=== PATIENT | male | born 1970 | race Caucasian/White ===

== ENCOUNTER 2020-10-09 12:18 | Outpatient (REF) | payer OTHER, SELFPAY ==
[2020-10-09 13:56] LABS: MANUAL DIFF FLAG NO
[2020-10-09 14:04] LABS: Basophils Percent Auto 0.4 % (0-2); Eosinophils Absolute Auto 0.2 X10*3/uL (0.0-0.4); Eosinophils Percent Auto 2.5 % (0-4); Hematocrit 42.3 % (42-52); Hemoglobin 13.8 g/dl (14.0-18.0); Imm Gran Abs Auto 0.01 X10*3/uL (0.00-0.03); Imm Gran Pct Auto 0.1 % (0.0-0.4); Lymphocytes Percent Auto 20.9 % (20-40); Mean Corpuscular HGB Conc 32.6 g/dl (31.0-36.0); Mean Corpuscular Hemoglobin 30.3 pg (27.0-33.0); Mean Corpuscular Volume 92.8 fL (80-98); Mean Platelet Volume 9.2 fL (9.4-12.4); Monocytes Absolute Auto 0.8 X10*3/uL (0.1-1.2); Monocytes Percent Auto 8.6 % (2-11); Neutrophils Absolute Auto 6.3 X10*3/uL (2.0-8.3); Neutrophils Percent Auto 67.5 % (45-73); Platelet Count 280 X10*3/uL (160-400); Red Blood Count 4.56 X10*6/uL (4.60-5.80); Red Cell Distribution Width 13.2 % (11.0-16.0); White Blood Count 9.3 X10*3/uL (4.8-10.8)
[2020-10-09 14:24] LABS: Alanine Aminotransferase 21 U/L (0-40); Albumin Level 4.2 g/dL (3.5-5.0); Alkaline Phosphatase 72 U/L (39-117); Anion Gap 14 (12-20); Aspartate Amino Transferase 22 U/L (5-37); Bilirubin Total 0.2 mg/dL (0.0-1.0); Blood Urea Nitrogen 16 mg/dL (9-16); Carbon Dioxide 23 mmol/L (22-29); Chloride 103 mmol/L (96-108); Estimated Glomerular Filt Rate > 60; Glucose Random 74 mg/dL (60-115); Sodium 136 mmol/L (135-145)
[2020-10-09 14:54] LABS: Vitamin B12 918 pg/mL (200-900)
== END 2020-10-09 12:19 | disposition home or self-care (01) ==
LOC: HO.HMGCLDS 12:18
PROVIDERS: PCP Nurse Practitioner Family; Visit Provider Nurse Practitioner Family
DX: D64.9 Anemia, unspecified (principal)
CPT/HCPCS: 36415; 80053; 82607; 85025

== ENCOUNTER 2021-07-24 12:45 | Outpatient (REF) | payer OTHER, SELFPAY ==
--- NOTE | ~2021-07-24 | XR_ITS ---
EXAMINATION: XR LUMBOSACRAL SPINE CLINICAL INFORMATION: Low back pain COMPARISON: None TECHNIQUE: Three views of the lumbosacral spine. FINDINGS: Bone alignment is normal. There is a slight loss of height of the superior endplate of the L1 vertebral body questionable for mild old compression fracture. There is mild degenerative spondylosis at L4-L5. Disc spaces are normal. There is increased sclerosis in the left femoral head suggestive of AVN. XR/XR lumbar spine 2-3V IMPRESSION: Question old mild L1 vertebral body compression fracture. Left femoral head AVN.
[2021-07-24 14:00] LABS: MANUAL DIFF FLAG NO
[2021-07-24 14:05] LABS: Basophils Percent Auto 0.6 % (0-2); Eosinophils Absolute Auto 0.1 X10*3/uL (0.0-0.4); Eosinophils Percent Auto 1.7 % (0-4); Hematocrit 43.3 % (42-52); Hemoglobin 14.2 g/dl (14.0-18.0); Imm Gran Abs Auto 0.01 X10*3/uL (0.00-0.03); Imm Gran Pct Auto 0.1 % (0.0-0.4); Lymphocytes Absolute Auto 1.6 X10*3/uL (1.2-4.9); Lymphocytes Percent Auto 22.9 % (20-40); Mean Corpuscular HGB Conc 32.8 g/dl (31.0-36.0); Mean Corpuscular Hemoglobin 29.5 pg (27.0-33.0); Mean Platelet Volume 9.3 fL (9.4-12.4); Monocytes Absolute Auto 0.6 X10*3/uL (0.1-1.2); Monocytes Percent Auto 8.4 % (2-11); Neutrophils Absolute Auto 4.7 X10*3/uL (2.0-8.3); Neutrophils Percent Auto 66.3 % (45-73); Platelet Count 241 X10*3/uL (160-400); Red Blood Count 4.81 X10*6/uL (4.60-5.80); Red Cell Distribution Width 12.9 % (11.0-16.0); White Blood Count 7.1 X10*3/uL (4.8-10.8)
[2021-07-24 14:38] LABS: Alanine Aminotransferase 79 U/L (0-40); Albumin Level 4.2 g/dL (3.5-5.0); Alkaline Phosphatase 58 U/L (39-117); Anion Gap 17 (12-20); Aspartate Amino Transferase 50 U/L (5-37); Bilirubin Total < 0.2 mg/dL (0.0-1.0); Blood Urea Nitrogen 17 mg/dL (9-16); Calcium 9.6 mg/dL (8.4-10.2); Carbon Dioxide 23 mmol/L (22-29); Chloride 104 mmol/L (96-108); Estimated Glomerular Filt Rate > 60; Glucose Fasting 92 mg/dL (60-99); Potassium 4.5 mmol/L (3.3-5.1); Sodium 139 mmol/L (135-145); Total Protein 6.9 g/dL (6.5-8.0)
[2021-07-24 14:45] LABS: Erythrocyte Sedimentation Rate 3 MM/HR (0-15)
[2021-07-26 13:37] LABS: CRP High Sensitivity 0.8 mg/L
== END 2021-07-24 12:46 | disposition home or self-care (01) ==
LOC: HO.HMGCX 12:45
PROVIDERS: PCP Family Medicine; Visit Provider Family Medicine
DX: Z00.00 Encounter for general adult medical examination without abnormal findings (principal); M54.5 Low back pain
CPT/HCPCS: 36415; 72100; 80053; 85025; 85652; 86141

== ENCOUNTER 2021-08-02 08:09 | Outpatient (REF) | payer OTHER, SELFPAY ==
--- NOTE | ~2021-08-02 | XR_ITS ---
EXAMINATION: XR PELVIS XR HIP, LEFT CLINICAL INFORMATION: Pain. COMPARISON: None TECHNIQUE: AP view of the pelvis. AP and frog-leg lateral views of the left hip. FINDINGS: Prominent scoliosis within the subcortical region of the left femoral head measuring up to 4.2 cm in AP dimension, likely representing the sequela of avascular necrosis. No associated cortical collapse. Minimal left hip joint space narrowing with tiny marginal osteophytes. No osseous erosion. No acute fracture or dislocation. No abnormal soft tissue calcification. XR/XR hip LT min 2V IMPRESSION: Probable avascular necrosis within the left femoral head without associated cortical collapse. Minimal left hip arthrosis.
--- NOTE | ~2021-08-02 | XR_ITS ---
EXAMINATION: XR CERVICAL SPINE CLINICAL INFORMATION: Cervicalgia. COMPARISON: None TECHNIQUE: 3 views of the cervical spine were obtained. FINDINGS: The cervical lordosis is maintained. Minimal grade 1 retrolisthesis of C3 on C4. No acute fracture. No loss of vertebral body height. Normal atlantoaxial alignment. Loss of intervertebral disc height with endplate osteophytes at C2-C3 and C6-C7 as well as, to a lesser degree, at C3-C4. No lytic or blastic osseous lesion. Unremarkable prevertebral soft tissues. XR/XR cervical spine 2V IMPRESSION: 1. Minimal grade 1 retrolisthesis of C3 on C4 with mild degenerative disc disease. 2. More moderate degenerative disc disease at C2-C3 and C6-C7.
--- NOTE | ~2021-08-02 | XR_ITS ---
EXAMINATION: XR PELVIS XR HIP, LEFT CLINICAL INFORMATION: Pain. COMPARISON: None TECHNIQUE: AP view of the pelvis. AP and frog-leg lateral views of the left hip. FINDINGS: Prominent scoliosis within the subcortical region of the left femoral head measuring up to 4.2 cm in AP dimension, likely representing the sequela of avascular necrosis. No associated cortical collapse. Minimal left hip joint space narrowing with tiny marginal osteophytes. No osseous erosion. No acute fracture or dislocation. No abnormal soft tissue calcification. XR/XR pelvis 1-2V IMPRESSION: Probable avascular necrosis within the left femoral head without associated cortical collapse. Minimal left hip arthrosis.
== END 2021-08-02 08:10 | disposition home or self-care (01) ==
LOC: HO.HOSX 08:09
PROVIDERS: Visit Provider Orthopaedic Surgery
DX: Z13.89 Encounter for screening for other disorder (principal)
CPT/HCPCS: 72040; 72170; 73502

== ENCOUNTER 2021-08-02 15:01 | Outpatient (REF) | payer OTHER, SELFPAY | END 2021-08-02 15:02 | disposition home or self-care (01) | LOC: HO.HMGCX 15:01 | PROVIDERS: PCP Family Medicine; Visit Provider Orthopaedic Surgery | DX: Z13.89 Encounter for screening for other disorder (principal) ==

== ENCOUNTER → 2021-08-08 14:29 | Outpatient (BNVA) | payer OTHER, SELFPAY | PROVIDERS: PCP Family Medicine; Visit Provider Anesthesiology | DX: M54.2 Cervicalgia (principal); M54.5 Low back pain; M47.812 Spondylosis without myelopathy or radiculopathy, cervical region; M47.816 Spondylosis without myelopathy or radiculopathy, lumbar region | CPT/HCPCS: 99202 ==

== ENCOUNTER 2022-06-17 12:48 | Outpatient (REF) | payer OTHER, SELFPAY ==
[2022-06-17 14:50] LABS: MANUAL DIFF FLAG NO
[2022-06-17 15:07] LABS: Basophils Percent Auto 0.7 % (0-2); Eosinophils Absolute Auto 0.2 X10*3/uL (0.0-0.4); Eosinophils Percent Auto 2.5 % (0-4); Hemoglobin 13.4 g/dl (14.0-18.0); Imm Gran Abs Auto 0.01 X10*3/uL (0.00-0.03); Imm Gran Pct Auto 0.2 % (0.0-0.4); Lymphocytes Absolute Auto 1.3 X10*3/uL (1.2-4.9); Lymphocytes Percent Auto 22.4 % (20-40); Mean Corpuscular HGB Conc 31.9 g/dl (31.0-36.0); Mean Corpuscular Hemoglobin 29.7 pg (27.0-33.0); Mean Corpuscular Volume 93.1 fL (80.0-98.0); Mean Platelet Volume 9.4 fL (9.4-12.4); Monocytes Absolute Auto 0.5 X10*3/uL (0.1-1.2); Monocytes Percent Auto 7.6 % (2-11); Neutrophils Absolute Auto 3.9 x10*3/uL (2.0-8.3); Neutrophils Percent Auto 66.6 % (45-73); Platelet Count 246 X10*3/uL (160-400); Red Blood Count 4.51 X10*6/uL (4.60-5.80); Red Cell Distribution Width 13.5 % (11.0-16.0); White Blood Count 5.9 X10*3/uL (4.8-10.8)
[2022-06-17 15:12] LABS: INTERNATIONAL NORM RATIO 0.9 (0.9-1.1); Prothrombin Time 9.7 SEC (10.0-13.1)
[2022-06-17 15:24] LABS: Alanine Aminotransferase 18 U/L (0-40); Albumin Level 4.1 g/dL (3.5-5.0); Alkaline Phosphatase 54 U/L (39-117); Anion Gap 15 (12-20); Aspartate Amino Transferase 17 U/L (5-37); Bilirubin Total 0.2 mg/dL (0.0-1.0); Blood Urea Nitrogen 16 mg/dL (9-16); Calcium 8.9 mg/dL (8.4-10.2); Carbon Dioxide 24 mmol/L (22-29); Chloride 107 mmol/L (96-108); Estimated Glomerular Filt Rate > 60; Glucose Random 72 mg/dL (60-115); Iron 59 mcg/dL (45-160); Percent Iron Saturation 16 % (15-50); Sodium 142 mmol/L (135-145); Total Iron Binding Capacity 362 mcg/dL (228-428); Total Protein 6.8 g/dL (6.5-8.0); Unsaturated Iron Binding 303 ug/dL
[2022-06-17 15:36] LABS: Ferritin 60 ng/mL (20-250); Thyroid Stimulating Hormone 1.72 uIU/mL (0.32-4.0); Vitamin D 25-OH Total 26.2 ng/mL (>30)
[2022-06-17 15:49] LABS: Vitamin B12 415 pg/mL (200-900)
[2022-06-20 18:17] LABS: Copper RBC 0.68 mg/L (0.53-0.91)
[2022-06-22 19:27] LABS: Testosterone, Free 43.5 pg/mL (35.0-155.0); Testosterone, Total 250 ng/dL (250-1100)
== END 2022-06-17 12:49 | disposition home or self-care (01) ==
LOC: HO.HMGCLDS 12:48
PROVIDERS: PCP Family Medicine; Visit Provider Internal Medicine
DX: Z01.818 Encounter for other preprocedural examination (principal)
CPT/HCPCS: 36415; 80053; 82306; 82525; 82607; 82728; 83540; 84402; 84403; 84443; 85025; 85610

== ENCOUNTER 2023-06-13 11:33 | Outpatient (REF) | payer OTHER, SELFPAY ==
[2023-06-13 14:19] LABS: MANUAL DIFF FLAG NO
[2023-06-13 14:25] LABS: Basophils Percent Auto 0.4 % (0-2); Eosinophils Absolute Auto 0.1 X10*3/uL (0.0-0.4); Eosinophils Percent Auto 1.5 % (0-4); Hemoglobin 13.5 g/dl (14.0-18.0); Imm Gran Abs Auto 0.03 X10*3/uL (0.00-0.03); Imm Gran Pct Auto 0.3 % (0.0-0.4); Lymphocytes Absolute Auto 1.8 X10*3/uL (1.2-4.9); Lymphocytes Percent Auto 20.4 % (20-40); Mean Corpuscular HGB Conc 32.1 g/dl (31.0-36.0); Mean Corpuscular Hemoglobin 29.2 pg (27.0-33.0); Mean Corpuscular Volume 90.7 fL (80.0-98.0); Monocytes Absolute Auto 0.8 X10*3/uL (0.1-1.2); Monocytes Percent Auto 8.8 % (2-11); Neutrophils Absolute Auto 6.1 x10*3/uL (2.0-8.3); Neutrophils Percent Auto 68.6 % (45-73); Platelet Count 330 X10*3/uL (160-400); Red Blood Count 4.63 X10*6/uL (4.60-5.80); Red Cell Distribution Width 13.8 % (11.0-16.0); White Blood Count 8.9 X10*3/uL (4.8-10.8)
[2023-06-13 14:28] LABS: INTERNATIONAL NORM RATIO 0.9 (0.9-1.1); Prothrombin Time 10.7 SEC (11.1-13.3)
[2023-06-13 14:59] LABS: Alanine Aminotransferase 18 U/L (0-40); Albumin Level 4.4 g/dL (3.5-5.0); Alkaline Phosphatase 71 U/L (39-117); Anion Gap 17 (12-20); Aspartate Amino Transferase 25 U/L (5-37); Bilirubin Total 0.5 mg/dL (0.0-1.0); Blood Urea Nitrogen 14 mg/dL (9-16); Calcium 9.4 mg/dL (8.4-10.2); Carbon Dioxide 23 mmol/L (22-29); Chloride 101 mmol/L (96-108); Estimated Glomerular Filt Rate > 60; Glucose Random 96 mg/dL (60-115); Potassium 3.5 mmol/L (3.3-5.1); Sodium 137 mmol/L (135-145); Total Protein 7.9 g/dL (6.5-8.0)
[2023-06-13 15:13] LABS: Ferritin 158 ng/mL (20-250); Vitamin D 25-OH Total 38.3 ng/mL (>30)
[2023-06-13 15:32] LABS: Folate 14.2 ng/mL (> or = 4.0); Vitamin B12 442 pg/mL (200-900)
[2023-06-18 12:34] LABS: Testosterone, Free 63.6 pg/mL (35.0-155.0); Testosterone, Total 430 ng/dL (250-1100)
== END 2023-06-13 11:34 | disposition home or self-care (01) ==
LOC: HO.WFDLDS 11:33
PROVIDERS: Visit Provider Family Medicine
DX: Z00.00 Encounter for general adult medical examination without abnormal findings (principal); E55.9 Vitamin D deficiency, unspecified; R53.83 Other fatigue; E53.8 Deficiency of other specified B group vitamins; R19.7 Diarrhea, unspecified
CPT/HCPCS: 36415; 80053; 82306; 82525; 82607; 82728; 82746; 84402; 84403; 85025; 85610

== ENCOUNTER 2023-07-09 11:39 | Outpatient (AMB) | payer OTHER, SELFPAY ==
[2023-07-09 11:43] VITALS: BP 102/64; PULSE 85
--- NOTE | 2023-07-09 11:43 | A.OFFPC_ITS ---
Vital Signs 07/09/23 11:43 Weight 126 lb BP 102/64 Blood Pressure Location Lt brachial Position Sitting Pulse 85 Pulse Source Pulse Oximeter Intake Visit Reasons: follow-up depression, diarrhea low testosterone Intake Note: Patient is following up on bloodwork, and depression, and low testosterone. Patient is requesting for an Epi Pen today. Patient would also like a refill on his iron, he would like to talk about meedles for his testoserone and his testosterone. Allergies beeswax Allergy (Verified 07/09/23 11:47) swollen, pain pollen extracts Allergy (Verified 07/09/23 11:47) burning eye, sneezing ,runny nose Tobacco use date assessed: 07/04/22 Dental Screening Dental Screen Date: 07/09/23 Did you have a dental visit in the last 12 months?: No Did you have a dental problem in the last 6 months where you did not have access to dental care?: No Was dental information given to patient?: No HPI follow-up depression, diarrhea low testosterone HPI Details 53 y/o male presents to f/u depression, diarrhea and low testosterone. Anxiety and depression Had started him on bupropion. Today PHQ-9 and jonn 7 are very high - see below Pt reports he feels like he is falling apart and reports aches/pain with every day tasks. Pt is on an anti-diarrheal regimen as he is S/P ileal resection. Added lactate for probable lactose intolerance. Had referred him to endocrinology for borderline low testosterone with fatigue- symptomatic. [facility] Medical History (Updated 07/09/23 @ 12:24 by Aquilino Heard) Abdominal wound dehiscence Chronic fatigue Complications of internal anastomosis of gastrointestinal tract Diverticulitis Short gut syndrome Spondylosis of cervical spine Spondylosis of lumbar spine Surgical History History of colostomy Social History Housing: House Patient Tobacco Use Status: Never used Tobacco e-Cigarette/Vaping Use: Never Used Second Hand Smoke Exposure: No Current occupational status: other (self-employed) Current occupation: self-employed Current occupational exposures/hazards: No Hearing needs: No Vision needs: No Questionnaire PHQ-9 Over the last 2 weeks, how often have you been bothered by any of the following problems? 1. Little interest or pleasure in doing things: nearly every day 2. Feeling down, depressed, or hopeless: nearly every day 3. Trouble falling or staying asleep, or sleeping too much: nearly every day 4. Feeling tired or having little energy: nearly every day 5. Poor appetite or overeating: several days 6. Feeling bad about yourself - or that you are a failure or have let yourself or your family down: several days 7. Trouble concentrating on things, such as reading the newspaper or watching television: nearly every day 8. Moving or speaking so slowly that other people could have noticed. Or the opposite - being so fidgety or restless that you have been moving around a lot more than usual: not at all 9. Thoughts that you would be better off or of hurting yourself in some way: nearly every day Total score: 20 Depression Screening Interpretation: Positive 59734 - PHQ-9 Billing: Yes Source: Developed by Drs. Alvin Cesar, Ana eCrvantes, Rafa Pyle and colleagues, with an educational ed from [employer]. Thrive Questionnaire Date Thrive assessed: 07/11/21 JONN-7 AMB Questionnaire JONN-7 Date JONN - 7 assessed: 07/09/23 Feeling nervous, anxious, or on edge: 3 = Nearly every day Not being able to stop or control worryin = Nearly every day Worrying too much about different things: 3 = Nearly every day Trouble relaxin = Nearly every day Being so restless that it is hard to sit still: 1 = Several days Becoming easily annoyed or irritable: 3 = Nearly every day Feeling afraid as if something awful might happen: 2 = More than half the days Total JONN-7 score (0-4 normal; 5-9 mild; 10-14 moderate; 15-21 severe): 18 Source: Developed by Drs. Alvin Cesar, Ana Cervantes, Rafa Pyle and colleagues, with an educational ed from [employer]. JONN-7 Assessment Billing JONN-7 Assessment Tool: JONN-7 Assessment 72027 Review of Systems Psych Reports anxiety and Reports depression Physical exam (Primary Care) Vital Signs: Last Vital Signs Pulse 85 07/09/23 11:43 BP 102/64 07/09/23 11:43 Tobacco/Smoking Status: Tobacco use Status Tobacco use date assessed 07/04/22 07/09/23 11:56 Patient Tobacco Use Status Never used Tobacco 07/09/23 11:56 e-Cigarette/Vaping Use Never Used 07/09/23 11:56 PHQ-9: PHQ-9 Score PHQ-9: Total score 20 07/09/23 12:02 Depression Screening Interpretation: Positive Thrive Assessment: Date of Thrive Assessment Date Thrive assessed 07/11/21 07/09/23 11:56 Assessment and Plan Assessment & Plan (1) Depression: Code(s): F32.A - Depression, unspecified Plan: Significant depression. Patient declines a therapist Also having issues with weight loss. Will try mirtazapine and continue bupropion (2) Fatigue: Code(s): R53.83 - Other fatigue Plan: Unclear cause. Checking labs Likely impacted by depression and anxiety and possible fibromyalgia. (3) Low testosterone in male: Code(s): R79.89 - Other specified abnormal findings of blood chemistry Plan: Has only had limited trial of testosterone last year. We will resume this and recheck T levels prior to his next visit (4) Diarrhea: Code(s): R19.7 - Diarrhea, unspecified Plan: Follow-up with GI. He has an appointment next month and I have asked him to request that they send a copy the visit note. (5) Difficulty concentrating: Code(s): R41.840 - Attention and concentration deficit Plan: We can discuss further at another visit (6) Weight loss: Code(s): R63.4 - Abnormal weight loss Plan: Ongoing weight loss though with limited follow-up, difficult to see how rapid it has been Will continue to follow Orders: Orders Vitamin B12 and Folate Today E53.8 - Deficiency of other specified B group vitamins Comprehensive [place]. Panel Fast Today Z00.00 - Encounter for general adult medical examination without abnormal findings Lipid Panel Today Z00.00 - Encounter for general adult medical examination without abnormal findings Prostate Specific Antigen Scr Today Z12.5 - Encounter for screening for malignant neoplasm of prostate Testosterone, Free/Total Today R79.89 - Other specified abnormal findings of blood chemistry TSH reflex Free T4 Today Z00.00 - Encounter for general adult medical examination without abnormal findings Vitamin D 25-OH Total Today E55.9 - Vitamin D deficiency, unspecified Microalbumin, Random (w Creat) Today I10 - Essential (primary) hypertension Complete Blood Count Auto Diff Today Z00.00 - Encounter for general adult medical examination without abnormal findings Drug Screen Urine Today R41.840 - Attention and concentration deficit UA and rflx microscopic Today Z00.00 - Encounter for general adult medical examination without abnormal findings Medications: New epinephrine (EpiPen 2-Naveen) 0.3 mg (0.3 mL) IM Q4H 30 days PRN 2 ea 3RF anaphylaxis mirtazapine 7.5 mg PO BEDTIME 30 days 30 tabs 2RF needle (disp) 25 gauge (BD PrecisionGlide Non-Sterile) Q2W As directed for testosterone, 90 days 50 ea 0RF R79.89 - Other specified abnormal findings of blood chemistry Refilled ferrous sulfate 325 mg PO BID 30 days 60 tabs 2RF loperamide (Anti-Diarrheal (loperamide)) 2 mg PO Q6H 30 days PRN 90 tabs 2RF loose stool testosterone cypionate 30 mg (0.15 mL) IM Q2W 28 days 0.3 mL 2RF E29.1 - Testicular hypofunction, R53.83 - Other fatigue Coding Level of Care Code Est Pt Level 4 (75702) Diagnoses Depression F32.A Fatigue R53.83 Low testosterone in male R79.89 Diarrhea R19.7 Difficulty concentrating R41.840 Weight loss R63.4 Additional Codes JONN-7 Assessment Billing - JONN-7 Assessment Tool: JONN-7 Assessment 06017 ([id number])
== END 2023-07-09 12:31 | disposition home or self-care (01) ==
PROVIDERS: PCP Family Medicine; Visit Provider Family Medicine
DX: F32.A Depression, unspecified (principal); R53.83 Other fatigue; R79.89 Other specified abnormal findings of blood chemistry; R19.7 Diarrhea, unspecified; R41.840 Attention and concentration deficit; R63.4 Abnormal weight loss
CPT/HCPCS: 99214

== ENCOUNTER 2025-04-26 15:11 | Outpatient (AMB) | payer OTHER, SELFPAY ==
--- NOTE | 2025-04-26 15:12 | AM.OFFWIN_ITS ---
Intake Vital Signs 04/26/25 15:14 Weight 142 lb 6 oz BP 138/80 Blood Pressure Location Rt brachial Position Sitting Pulse 98 Pulse Source Pulse Oximeter Pulse Oximetry (%) 98 Oxygen Delivery Method Room Air Intake Visit Reasons: EP No energy, Chronic stomach, diarrhea Intake Note: Patient here for no energy, chronic stomach pain and diarrhea. Patient Tobacco Use Status: Never used Tobacco Allergies beeswax Allergy (Verified 04/26/25 15:14) swollen, pain pollen extracts Allergy (Verified 04/26/25 15:14) burning eye, sneezing ,runny nose Do you need a note to return to daycare/school/sports/work: No HPI HPI Comments History of Present Illness Details Patient is a 54-year-old male with a past medical history of chronic diarrhea status post ileum resection in 2019, anemia, depression, low testosterone, and diverticulosis complaining of diarrhea fatigue and low testosterone. He has been seen several times by his primary care doctor, Dr. Parr, but not since June of 2022. He tells me that he did order him testosterone but never ordered the needles so he borrowed someone's diabetes needles and was injecting it and state it was working well but ran out of the medication. He said he tried calling his PCP's office to get the correct needles but nobody ever called him back and he has not been seen since. He is here with his mother today in his mother's telling me he is depressed and fatigued and he needs to see a primary care doctor. They did call but they were told he could not see Dr. Parr until June. They also tell me they are not happy with his care. He would like to switch to a different provider. See below for his last to annual visits with Dr. Parr and associated information. HPI from 07/08: Pt is a 52 y/o male presenting today with complaints of diarrhea, fatigue, and low testosterone. He has ongoing fatigue. Has had borderline low testosterone at 250 from labs drawn 06/17/22. He reports ongoing diarrhea. Pt is s/p ileum resect 2019 and is on cholestyramine 4g b.i.d. He is also on loperamide 2mg. He has been taking loperamide almost every day until he had run out of it. He has been taking it 2-3 pills of loperamide everyday. He states he continues to lose weight and feels especially worried about this. He reports ongoing depression due to ongoing medical issues. He is not interested in therapy. He notes he has tried trazodone before for mood and states that this helps him fall asleep. He reports dermatitis on his hands. HPI from 07/09: 53 y/o male presents to f/u depression, diarrhea and low testosterone. Anxiety and depression Had started him on bupropion. Today PHQ-9 and jillian 7 are very high - see below Pt reports he feels like he is falling apart and reports aches/pain with every day tasks. Pt is on an anti-diarrheal regimen as he is S/P ileal resection. Added lactate for probable lactose intolerance. Had referred him to endocrinology for borderline low testosterone with fatigue- symptomatic. 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 Spondylosis of cervical spine Complications of internal anastomosis of gastrointestinal tract Abdominal wound dehiscence Diverticulitis Chronic fatigue Short gut syndrome Surgical History (Updated 01/14/24 @ 18:17 by Zach Sesay, [facility]) Status post exam under anesthesia with hemorrhoid banding S/P small bowel resection History of colon resection History of resection of terminal ileum History of bowel resection History of colostomy Social History Housing: House Patient Tobacco Use Status: Never used Tobacco e-Cigarette/Vaping Use: Never Used Second Hand Smoke Exposure: No Current occupational status: other (self-employed) Current occupation: self-employed Current occupational exposures/hazards: No Hearing needs: No Vision needs: No Review of Systems Const All systems reviewed & are unremarkable except as noted in HPI and below Physical Exam Vital Signs: Last Vital Signs Pulse 98 04/26/25 15:14 BP 138/80 04/26/25 15:14 Pulse Ox 98 04/26/25 15:14 Oxygen Delivery Method Room Air 04/26/25 15:14 Assessment & Plan Assessment & Plan (1) Fatigue: Code(s): R53.83 - Other fatigue Qualifiers: Fatigue type: unspecified Qualified Code(s): R53.83 - Other fatigue Plan: Vital signs are stable patient is well-appearing. Advised that I would reach out to the [facility] office and speak with the front office developer and get him switched to [facility] and that the office would call him back with an appointment date as well as let him know if there any labs she would like him to do prior to his appointment. Advised if he had any acute issues between now and that appointment, that he could come to this office for care. He understands and agrees with the plan and is willing to wait until he has the new patient appointment with his new provider. (2) Diarrhea: Code(s): R19.7 - Diarrhea, unspecified Qualifiers: Diarrhea type: unspecified type Qualified Code(s): R19.7 - Diarrhea, unspecified Plan: See above (3) Low testosterone in male: Code(s): R79.89 - Other specified abnormal findings of blood chemistry Plan: See above Coding Level of Care Code Est Pt Level 3 (67033) Diagnoses Fatigue, unspecified type R53.83 Fatigue type: unspecified Diarrhea, unspecified type R19.7 Diarrhea type: unspecified type Low testosterone in male R79.89
[2025-04-26 15:14] VITALS: BP 138/80; PULSE 98; O2SAT 98
== END 2025-04-26 16:02 | disposition home or self-care (01) ==
PROVIDERS: PCP Family Medicine; Visit Provider Physician Assistant
DX: R53.83 Other fatigue (principal); R19.7 Diarrhea, unspecified; R79.89 Other specified abnormal findings of blood chemistry

== ENCOUNTER → 2025-04-26 15:11 | Outpatient (BNVA) | payer OTHER, SELFPAY | PROVIDERS: PCP Family Medicine; Visit Provider Physician Assistant | DX: R53.83 Other fatigue (principal); R19.7 Diarrhea, unspecified; R79.89 Other specified abnormal findings of blood chemistry | CPT/HCPCS: 99212 ==

== ENCOUNTER 2025-05-16 12:38 | Outpatient (REF) | payer OTHER, SELFPAY ==
[2025-05-16 18:00] LABS: Hematocrit 46.3 % (42.0-52.0); Mean Corpuscular HGB Conc 32.4 g/dl (31.0-36.0); Mean Corpuscular Hemoglobin 29.8 pg (27.0-33.0); Mean Corpuscular Volume 91.9 fL (80.0-98.0); Platelet Count 345 X10*3/uL (160-400); Red Blood Count 5.04 X10*6/uL (4.60-5.80); Red Cell Distribution Width 12.9 % (11.0-16.0)
[2025-05-16 18:21] LABS: Alanine Aminotransferase 21 U/L (0-40); Albumin Level 4.2 g/dL (3.5-5.0); Alkaline Phosphatase 63 U/L (39-117); Anion Gap 15 (12-20); Aspartate Amino Transferase 37 U/L (5-37); Bilirubin Total 0.2 mg/dL (0.0-1.0); Blood Urea Nitrogen 19 mg/dL (9-16); Calcium 9.1 mg/dL (8.4-10.2); Carbon Dioxide 24 mmol/L (22-29); Chloride 106 mmol/L (96-108); Cholesterol 178 mg/dL (<200); Estimated Glomerular Filt Rate > 60; Glucose Random 111 mg/dL (60-115); HDL Cholesterol 82 mg/dL (>40); Iron 70 mcg/dL (45-160); LDL Cholesterol Calculated 55 mg/dL (<100); Percent Iron Saturation 21 % (15-50); Potassium 3.8 mmol/L (3.3-5.1); Sodium 141 mmol/L (135-145); Total Iron Binding Capacity 328 mcg/dL (228-428); Total Protein 7.4 g/dL (6.5-8.0); Triglycerides 208 mg/dL (<150); Unsaturated Iron Binding 258 ug/dL
[2025-05-16 18:21] LABS: Creatinine Urine 133.54 mg/dL; Microalbumin Urine < 5.0 mg/L
[2025-05-16 18:39] LABS: Ferritin 98 ng/mL (20-250); Vitamin D 25-OH Total 33.2 ng/mL (>30)
[2025-05-16 18:46] LABS: Folate 9.9 ng/mL (> or = 4.0); Vitamin B12 304 pg/mL (200-900)
[2025-05-17 05:25] LABS: Estimated Average Glucose 105 mg/dL; Hemoglobin A1c % 5.3 % (<6.0)
[2025-05-23 01:33] LABS: Testosterone, Free 44.7 pg/mL (35.0-155.0); Testosterone, Total 300 ng/dL (250-1100)
[2025-05-23 01:54] LABS: PSA, Ultra Sensitive 0.51 ng/mL
== END 2025-05-16 12:39 | disposition home or self-care (01) ==
LOC: HO.LNP 12:38
PROVIDERS: PCP Nurse Practitioner Family; Visit Provider Nurse Practitioner Family
DX: Z00.01 Encounter for general adult medical examination with abnormal findings (principal); Z23 Encounter for immunization; Z01.89 Encounter for other specified special examinations; E29.1 Testicular hypofunction; F33.2 Major depressive disorder, recurrent severe without psychotic features; R45.851 Suicidal ideations; Z13.31 Encounter for screening for depression; Z13.39 Encounter for screening examination for other mental health and behavioral disorders; R79.89 Other specified abnormal findings of blood chemistry; R74.8 Abnormal levels of other serum enzymes
CPT/HCPCS: 80053; 80061; 82306; 82570; 82607; 82728; 82746; 83036; 83540; 84153; 84402; 84403; 84443; 85027; 90471; 90715; 96127; 99212; 99396

== ENCOUNTER 2025-05-16 12:38 | Outpatient (AMB) | payer OTHER, SELFPAY ==
--- NOTE | 2025-05-16 12:40 | A.OFFPC_ITS ---
Vital Signs 05/16/25 12:48 Height 5 ft 6 in Weight 134 lb BMI 21.6 BP 132/74 Blood Pressure Location Rt brachial Position Sitting Respiration 13 Pulse 93 Pulse Source Pulse Oximeter Temp 97.2 F Temp Source Oral Pulse Oximetry (%) 98 Oxygen Delivery Method Room Air Intake Visit Reasons: BETO Karolyn Intake Note: BETO to establish care. Hand Former Required: No Allergies beeswax Allergy (Verified 05/16/25 12:42) swollen, pain pollen extracts Allergy (Verified 05/16/25 12:42) burning eye, sneezing ,runny nose Tobacco use date assessed: 05/16/25 Dental Screening Dental Screen Date: 05/16/25 Did you have a dental visit in the last 12 months?: Yes Did you have a dental problem in the last 6 months where you did not have access to dental care?: No Was dental information given to patient?: Patient has dentist HPI HPI Comments History of Present Illness Details 54 Y/O M with chronic diarrhea status po st ileum resection in 2019, anemia, low testosterone, diverticulosis, chronic fatigue syndrome, MDD, chronic neck and back pain Surgical Hx: Status post exam under anesthesia with hemorrhoid banding S/P small bowel resection History of colon resection History of resection of terminal ileum History of bowel resection History of colostomy Health Maintenance Colon 2019 Tdap admin today Specialists Pain Mgmt GI History of Present Illness - The patient is a 54-year-old male pres enting for a CPE, pt of Dr Parr This is a very difficult visit as the patient was talking over me, was hard to redirect, would not answer questions approp. and often said he said no idea what i was saying he is here w/ his mom. I asked her if he had capacity to speak for himself and she said he does He has his own home but stays w/ her. All he does is sleep. She drives him to all his appts. Has poor follow through d/t sleeping all the time. Pt reports the only thing he needs is testosterone and goes into details of why he doesnt have it. He then said im gonna end it all, kill my self At this time, i advised of need for crisis eval. he declined im too tired to do anything revieed chart, he has endorsed this before; was on meds in the past; not in any care now. I did send in NN for brief intervention. He wants labs and says he cant get any done as no one will get back to him i ordered labs for him 04/27 after a call from his mom asking for labs but he never got them done Reviewed Uro referral for Testosterone, this upset him, as he just wants it now. Social History - Currently unemployed due to fatigue an d health issues. - Receives limited support from family, particularly his mother, due to difficulty maintaining energy and functionality. Health Maintenance - Discussed option for a tetanus vaccina tion during the visit. - Planned for labs to be completed same day for further evaluation. Review of Systems - Constitutional: Reports chronic fatigu e and low energy. - Endocrine: Reports difficulty obtainin g testosterone. - Gastrointestinal: Reports chronic diar isaiah. - Hematologic: Denied episodes of increa sed bleeding; history of anemia discussed. - Psychological: Reports longstanding clive ervin depressive disorder and generalized anxiety disorder. Physical Exam General: Well developed, well nourished, in no acute distress. Appears stated age. Head: Normocephalic, atraumatic. Eyes: Pupils are equal, round and reactive to light and accommodation. Conjunctivae are clear. Pharynx clear Lungs: Clear to auscultation bilaterally. No rales, rhonchi or wheeze noted. Good air flow in all luna. Heart: Regular rate and rhythm. No murmurs, click, rubs or gallops are noted. Pulses: Peripheral pulses are equal and palpable bilaterally. Extremities: No clubbing, cyanosis nor edema is noted. Neurologic: Gait and station normal. Skin: No rashes, ulcers, or lesions noted. Turgor is good. Skin color is good. Hair and nails are without abnormalities. Psych: Odd, laying on exam table, unable to answer questions approp. voiced SI w/o plan, contracts for safety; ? capacity. Discussion Notes During the visit, I discussed the patient's chronic fatigue and the history of challenges with testosterone replacement therapy. We talked about referring him to a urologist as a specialist better equipped to handle testosterone management. I explained that specialists might offer streamlined treatment and less delay. I ordered lab work during this visit and arranged for him to receive a tetanus shot today. We also addressed the importance of joining the patient portal for quicker access to lab results and communication. his Mom should be the primary contact and not him, per his request, i agree w/ this as he does not seem to be able to manage i advised for ED crisis eval he declined contracts for safety in person brief intervention w/ NN done today. Crisis info provided refer to neuropsych for competency and treatment He should f/u with his PCP, DR Parr, for his next visit. This was a very difficult and uncomfortable visit; he had his Mom in tears w/ the way he was talking. Patient Instructions - Please get labs done today. - Speak to the front desk administrator about portal s etup for fast access to test results. - Follow up with the urology specialist regarding testosterone management. - Receive the tetanus shot today. Consent Patient was informed and verbally consented to the use of an ambient scribe for clinic note documentation during this visit. An additional 45 minutes was spent addressing the problem(s) noted at todays visit. 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 Spondylosis of cervical spine Complications of internal anastomosis of gastrointestinal tract Abdominal wound dehiscence Diverticulitis Chronic fatigue Short gut syndrome Surgical History Status post exam under anesthesia with hemorrhoid banding S/P small bowel resection History of colon resection History of resection of terminal ileum History of bowel resection History of colostomy Social History (Updated 05/16/25 @ 12:52 by Cyrus Barfield MA) Household Members: None Both parents involved: No Caregiver staying overnight: No Housing: House Are you a primary personal care attendant to a significant other at home: No Do you presently have visiting nurse or other home services: No 75 years or older and lives alone: No Patient Tobacco Use Status: Never used Tobacco e-Cigarette/Vaping Use: Never Used Second Hand Smoke Exposure: No Current occupational status: other (self-employed) Current occupation: self-employed Current occupational exposures/hazards: No Cognitive needs: No Hearing needs: No Vision needs: No Questionnaire PHQ-9 Over the last 2 weeks, how often have you been bothered by any of the following problems? 1. Little interest or pleasure in doing things: nearly every day 2. Feeling down, depressed, or hopeless: nearly every day 3. Trouble falling or staying asleep, or sleeping too much: nearly every day 4. Feeling tired or having little energy: nearly every day 5. Poor appetite or overeating: not at all 6. Feeling bad about yourself - or that you are a failure or have let yourself or your family down: nearly every day 7. Trouble concentrating on things, such as reading the newspaper or watching television: nearly every day 8. Moving or speaking so slowly that other people could have noticed. Or the opposite - being so fidgety or restless that you have been moving around a lot more than usual: nearly every day 9. Thoughts that you would be better off or of hurting yourself in some way: nearly every day Total score: 24 Depression Screening Interpretation: Positive Depression Screening Follow-up: Existing condition, In treatment and Community Mental Health Worker F/U Depression Screening Done: Yes 60131 - PHQ-9 Billing: Yes Source: Developed by Drs. Alvin Cesar, Ana Cervantes, Rafa Pyle and colleagues, with an educational ed from [employer]ulate. Thrive Questionnaire Date Thrive assessed: 05/16/25 I am a: Patient What is your living situation today?: I have a steady place to live Within the past 12 months, did the food you bought not last and you didn't have the money to get more?: Never true Within the past 12 months, did you worry whether your food would run out before you got money to buy more?: Never true Do you have trouble paying for medicines?: No Do you have trouble getting transportation to medical appointments?: No Do you have trouble paying your heating and electricity bill?: No Do you have trouble taking care of your child, family member or friend?: No Do you have trouble with day-to-day activities such as bathing, preparing meals, shopping, managing finances, etc.?: No Are you currently unemployed and looking for a job?: No Are you interested in more education?: No THRIVE Score: 0 AUDIT C Alcohol Use Questionnaire (AUDIT-C) 1. How often do you have a drink containing alcohol?: Never 3. How often do you have six or more drinks on one occasion?: Never Total Score: 0 Score Reviewed/Action Taken: Yes JONN-7 AMB Questionnaire JONN-7 Date JONN - 7 assessed: 05/16/25 Feeling nervous, anxious, or on edge: 3 = Nearly every day Not being able to stop or control worryin = Nearly every day Worrying too much about different things: 3 = Nearly every day Trouble relaxin = More than half the days Being so restless that it is hard to sit still: 3 = Nearly every day Becoming easily annoyed or irritable: 3 = Nearly every day Feeling afraid as if something awful might happen: 0 = Not at all Total JONN-7 score (0-4 normal; 5-9 mild; 10-14 moderate; 15-21 severe): 17 Source: Developed by Drs. Alvin Cesar, Ana Cervantes, Rafa Pyle and colleagues, with an educational ed from [employer]. JONN-7 Assessment Billing JONN-7 Assessment Tool: JONN-7 Assessment 81435 Physical exam (Primary Care) Vital Signs: Last Vital Signs Temp 97.2 F 05/16/25 12:48 Pulse 93 05/16/25 12:48 Resp 13 05/16/25 12:48 BP 132/74 05/16/25 12:48 Pulse Ox 98 05/16/25 12:48 Oxygen Delivery Method Room Air 05/16/25 12:48 BMI result Body Mass Index 21.6 Tobacco/Smoking Status: Tobacco use Status Tobacco use date assessed 05/16/25 05/16/25 12:44 Patient Tobacco Use Status Never used Tobacco 05/16/25 12:52 e-Cigarette/Vaping Use Never Used 05/16/25 12:52 PHQ-9: PHQ-9 Score PHQ-9: Total score 24 05/16/25 13:08 Depression Screening Interpretation: Positive Depression Screening Follow-up: Existing condition, In treatment and Community Mental Health Worker F/U Thrive Assessment: Date of Thrive Assessment Date Thrive assessed 05/16/25 05/16/25 12:41 Immunizations Boostrix Tdap 2.5 Lf unit-8 mcg-5 Lf/0.5 mL intramuscular syringe Performing Provider: DIPTI Toro Performing Location: [facility] Administered by: Cyrus Barfield MA on 05/16/25 13:22 Dose Route Admin Location Dispensed Lot Number Expiration Date [employer] 0.5 mL IM Right Deltoid 0.5 mL [id number] 09/06/27 40571-807-36 Press Play Total Dispensed Waste 0.5 mL 0 % VIS Given Date VIS Provided VIS Publication Date 05/16/25 Single Vaccine 21 Eligibility Eligibility Date Funding Source Not [facility] Eligible 05/16/25 Private Coding Level of Care Code Est Pt Level 5 (45248) Est Pt Prev Care 40-64y(88066) Diagnoses Encounter for general adult medical examination with abnormal findings Z00.01 Hypogonadism in male E29.1 Encounter for competency evaluation Z. Severe episode of recurrent major depressive disorder, without psychotic features F33.2 Depression Type: major depressive disorder Major depression recurrence: recurrent Active/Remission status: currently active Major depression episode severity: severe Psychotic features: without psychotic features Fatigue due to depression F32.A; R53.83 Fatigue type: due to depression Suicidal ideation R45.851 Additional Codes JONN-7 Assessment Billing - JONN-7 Assessment Tool: JONN-7 Assessment 67989 ([id number]) PHQ-9 - 73615 - PHQ-9 Billing: Yes ([id number]) Assessment & Plan Assessment & Plan (1) Encounter for general adult medical examination with abnormal findings: Onset Date: ~05/16/25 Code(s): Z00.01 - Encounter for general adult medical examination with abnormal findings Category: Medical (2) Hypogonadism in male: Code(s): E29.1 - Testicular hypofunction Category: Medical (3) Encounter for competency evaluation: Code(s): Z01.89 - Encounter for other specified special examinations Category: Medical (4) Depression: Code(s): F32.A - Depression, unspecified Category: Medical Qualifiers: Depression Type: major depressive disorder Major depression recurrence: recurrent Active/Remission status: currently active Major depression episode severity: severe Psychotic features: without psychotic features Qualified Code(s): F33.2 - Major depressive disorder, recurrent severe without psychotic features (5) Fatigue: Code(s): R53.83 - Other fatigue Category: Medical Qualifiers: Fatigue type: due to depression Qualified Code(s): F32.A - Depression, unspecified; R53.83 - Other fatigue (6) Suicidal ideation: Code(s): R45.851 - Suicidal ideations Category: Medical Plan . Orders: Orders Testosterone, Free/Total Today E29.1 - Testicular hypofunction TDaP Immunization Today Z23 - Encounter for immunization Referrals Nurse Navigator Referral F41.1 - Generalized anxiety disorder Neuropsychiatry Referral Z01.89 - Encounter for other specified special examinations Urology Referral E29.1 - Testicular hypofunction Patient Instructions: Health screenings for men ages 40 to 64 You should visit your health care provider regularly, even if you feel healthy. The purpose of these visits is to: Screen for medical issues Assess your risk for future medical problems Encourage a healthy lifestyle Update vaccinations and other preventive care services Help you get to know your provider in case of an illness Information Even if you feel fine, you should still see your provider for regular checkups. These visits can help you avoid problems in the future. For example, the only way to find out if you have high blood pressure is to have it checked regularly. High blood sugar and high cholesterol level also may not have any symptoms in the early stages. Simple blood tests can check for these conditions. There are specific times when you should see your provider or receive specific health screenings. The [place] Preventive Services Task Force publishes a list of recommended screenings. Below are screening guidelines for men ages 40 to 64. BLOOD PRESSURE SCREENING Have your blood pressure checked at least once every year. Watch for blood pressure screenings in your area. Ask your provider if you can stop in to have your blood pressure checked. Ask your provider if you need your blood pressure checked more often if: You have diabetes, heart disease, kidney problems, or are overweight or have certain other health conditions You have a first-degree relative with high blood pressure You are Black Your blood pressure top number is from 120 to 129 mm Hg, or the bottom number is from 70 to 79 mm Hg If the top number is 130 mm Hg or greater or the bottom number is 80 mm Hg or greater, this is considered stage 1 hypertension. Schedule an appointment with your provider to learn how you can lower your blood pressure. Effects of age on blood pressure CHOLESTEROL SCREENING Cholesterol screening should begin at age 35 for men with no known risk factors for coronary heart disease. Repeat cholesterol screening should take place: Every 5 years for men with normal cholesterol levels More often if changes occur in lifestyle (including weight gain and diet) More often if you have diabetes, heart disease, kidney problems, or certain other conditions COLORECTAL CANCER SCREENING If you are under age 45, talk to your provider about getting screened. You may need to be screened if you have a strong family history of colon cancer or polyps. Screening may also be considered if you have risk factors such as a history of inflammatory bowel disease or polyps. If you are age 45 to 75, you should be screened for colorectal cancer. There are several screening tests available: A stool-based fecal occult blood (gFOBT) or fecal immunochemical test (FIT) every year A stool sDNA test every 1 to 3 years Flexible sigmoidoscopy every 5 years or every 10 years with stool testing FIT done every year CT colonography (virtual colonoscopy) every 5 years Colonoscopy every 10 years You may need a colonoscopy more often if you have risk factors for colorectal cancer, such as: Ulcerative colitis A personal or family history of colorectal cancer A history of growths in your colon called adenomatous polyps DENTAL EXAM Go to the dentist once or twice every year for an exam and cleaning. Your dentist will evaluate if you have a need for more frequent visits. DIABETES SCREENING All adults who do not have risk factors for diabetes should be screened starting at age 35 and repeated every 3 years. If you have other risk factors for diabetes, such as a first degree relative with diabetes, overweight or obesity, high blood pressure, prediabetes, or a history of heart disease, you may be tested more often. If you are overweight and have other risk factors, such as high blood pressure and are planning to become , screening is recommended. EYE EXAM Have an eye exam every 2 to 4 years ages 40 to 54 and every 1 to 3 years ages 55 to 64. Your provider may recommend more frequent eye exams if you have vision problems or glaucoma risk. Have an eye exam that includes an examination of your retina (back of your eye) at least every year if you have diabetes. IMMUNIZATIONS Commonly needed vaccines include: Flu shot: get one every year COVID-19 vaccine: ask your provider what is best for you Tetanus-diphtheria and acellular pertussis (Tdap) vaccine: have as one of your tetanus-diphtheria vaccines if you did not receive it as an adolescent Tetanus-diphtheria: have a booster (or Tdap) every 10 years Varicella vaccine: receive 2 doses if you never had chickenpox or the varicella vaccine and were born in 1979 or after Hepatitis B vaccine: receive 2, 3, or 4 doses, depending on your exact circumstances, if you did not receive these as a child or adolescent, until age 59 Shingles (herpes zoster) vaccine: at or after age 50 Ask your provider if you should receive other immunizations, especially if you have certain medical conditions, such as diabetes or are at increased risk for some diseases such as pneumonia. INFECTIOUS DISEASE SCREENING Screening for hepatitis C: all adults ages 18 to 79 should get a one-time test for hepatitis C. Screening for human immunodeficiency virus (HIV): all people ages 15 to 65 should get a one-time test for HIV. Depending on your lifestyle and medical history, you may need to be screened for infections such as syphilis, chlamydia, and other infections. LUNG CANCER SCREENING You should have an annual screening for lung cancer with low-dose computed tomography (LDCT) if: You are age 50 to 80 years AND You have a 20 pack-year smoking history AND You currently smoke or have quit within the past 15 years OSTEOPOROSIS SCREENING If you are age 50 to 64 and have risk factors for osteoporosis, you should discuss screening with your provider. Risk factors can include long-term steroid use, low body weight, smoking, heavy alcohol use, having a fracture after age 50, or a family history of hip fracture or osteoporosis. Osteoporosis PHYSICAL EXAM All adults should visit their provider from time to time, even if they are healthy. The purpose of these visits is to: Screen for diseases Assess risk of future medical problems Encourage a healthy lifestyle Update vaccinations and other preventive care services Maintain a relationship with a provider in case of an illness Your height, weight, and body mass index (BMI) should be checked at every exam. During your exam, your provider may ask you about: Depression and anxiety Diet and exercise Alcohol and tobacco use Safety, such as use of seat belts and smoke detectors Your medicines and risk for interactions PROSTATE CANCER SCREENING If you're 55 through 69 years old, before having the test, talk to your provider about the pros and cons of having a PSA test. Ask about: Whether screening decreases your chance of dying from prostate cancer. Whether there is any harm from prostate cancer screening, such as side effects from testing or overtreatment of cancer when discovered. Whether you have a higher risk of prostate cancer than others. If you are age 55 or younger, screening is not generally recommended. You should talk with your provider about if you have a higher risk for prostate cancer. Risk factors include: Having a family history of prostate cancer (especially a brother or father) Being If you choose to be tested, the PSA blood test is repeated over time (yearly or less often), though the best frequency is not known. Prostate examinations are no longer routinely done on men with no symptoms. Prostate cancer SKIN EXAM Your provider may check your skin for signs of skin cancer, especially if you're at high risk. People at high risk include those who have had skin cancer before, have close relatives with skin cancer, or have a weakened immune system. TESTICULAR EXAM The [place] Preventive Services Task Force (USPSTF) now recommends against performing testicular self-exams. Doing testicular self-exams has been shown to have little to no benefit.
[2025-05-16 12:48] VITALS: BP 132/74; PULSE 93; RESP 13; TEMP 36.2; O2SAT 98; BMI 21.6
== END 2025-05-16 13:36 | disposition home or self-care (01) ==
LOC: HO.HMCFM 12:39
PROVIDERS: PCP Nurse Practitioner Family; Visit Provider Nurse Practitioner Family
DX: Z00.01 Encounter for general adult medical examination with abnormal findings (principal); E29.1 Testicular hypofunction; F33.2 Major depressive disorder, recurrent severe without psychotic features; R45.851 Suicidal ideations; R53.83 Other fatigue; Z23 Encounter for immunization

== ENCOUNTER 2025-06-23 15:09 | Outpatient (AMB) | payer OTHER, SELFPAY ==
--- OUTSIDE RECORDS SUMMARY | 2025-06-23 15:11 | XMS_ITS | Clinical Summary ---
Author Organization [facility] Address [address] [place] [phone] Phone Care Team Providers Care Structural Designer Name Role Phone Celso Parr MD Primary Care Provider Allergies Active Allergy Reactions Criticality Noted Date Comments Bee Pollen 03/27/2021 Medications loratadine (CLARITIN) 10 mg tablet Take 10 mg by mouth daily. Active naproxen sodium (ALEVE) 220 MG tablet Take 220 mg by mouth 2 (two) times a day with meals. Active acetaminophen (TYLENOL) 500 MG tablet Take 1,000 mg by mouth every 8 (eight) hours as needed for pain (specific location in comments). Active cholestyramine (QUESTRAN) 4 gram packet Take 3 packets by mouth daily. Active Family History Medical History Relation Comments Ovarian cancer Maternal Aunt Brain cancer Maternal Cousin Diverticulosis Mother Relation Status Comments Maternal Aunt Maternal Cousin Mother Social History Tobacco Use Types Packs/Day Years Used Date Smoking Tobacco: Former Smokeless Tobacco: Never Alcohol Use Standard Drinks/Week Comments Yes 12 (1 standard drink = 0.6 oz pu re alcohol) Education Answer Date Recorded Are you interested in more education? Not on trevin e 03/14/2023 Are you concerned about learning? Not on file 03/14/2023 No 03/14/2023 No 03/14/2023 Digital Access Answer Date Recorded No 04/12/2023 No 04/12/2023 No 04/12/2023 Reliable internet access at home? Not on file 04/12/2023 Device with a working camera? Not on file Sex and Gender Information Value Date Recorded Sex Assigned at Not on file Legal Sex Male 12:15 PM EDT Gender Identity Not on file Sexual Orientation Not on file Last Filed Vital Signs Vital Sign Reading Time Taken Comments Blood Pressure 96/58 03/28/2021 2:46 PM EDT Pulse 66 03/28/2021 1:27 PM EDT Temperature 36 C (96.8 F) 03/28/2021 2:33 PM EDT Respiratory Rate 12 03/28/2021 1:27 PM EDT Oxygen Saturation 93% 03/28/2021 2:49 PM EDT Inhaled Oxygen Concentration - - Weight 63.5 kg (140 lb) 03/27/2021 1:05 PM EDT Height 167.6 cm (5' 6 ) 03/27/2021 1:05 PM EDT Body Mass Index 22.6 03/27/2021 1:05 PM EDT Plan of Treatment Health Maintenance Due Date Last Done Comments Adult Td,Tdap Booster 1970 LIPID PANEL 1971 DEPRESSION SCREENING 1983 SMOKING Hx and SMOKELESS TOB ACCO SCREENING 1984 HEPATITIS C SCREENING 1989 HIV ONE-TIME SCREENING (18-6 5 YEARS) 1989 COLOGUARD 2016 FIT TEST 2016 FOBT 2016 SIGMOIDOSCOPY 2016 VIRTUAL COLONOSCOPY 2016 PNEUMOCOCCAL VACCINES (50+ y ears) (1 of 1 - PCV) 2021 ZOSTER VACCINES (1 of 2) 2021 COVID-19 VACCINE (1 - 2023-2 5 season) 2024 COLONOSCOPY 03/28/2031 03/28/2021 COLORECTAL CANCER SCREENING 03/28/2031 HEPATITIS A VACCINES Aged Out No long er eligible based on patient's age to complete this topic HIB VACCINES Aged Out No longer eligi ble based on patient's age to complete this topic MENINGOCOCCAL VACCINES (ACWY) Aged Out No longer eligible based on patient's age to complete this topic MENINGOCOCCAL VACCINES (B) Aged Out N o longer eligible based on patient's age to complete this topic Medical Devices Implanted Type [employer]ge Device Identifier Shelf Expiration Date Model / Serial / Lot Right Knee Procedures Procedure Name Priority Date/Time Associated Diagnosis Comments ENDOSCOPY, COLON 03/28/2021 1:46 PM EDT from Last 3 Months or Most Recently Relevant to Health Maintenance Results * ENDOSCOPY, COLON (03/28/2021 1:46 PM EDT) Narrative Transcriptions Robinson Bunn MD - 03/28/2021 1:46 PM EDT Patient Name: Adrian Ferrell Attending MD:: ROBINSON BUNN MD Procedure Date: 03/28/2021 1:46 PM Date of : 1970 Age: 50 Admit Type: Outpatient Gender: Male Room: [place] [address] Referring MD: Zach Sesay Exam Type: Colonoscopy Indications: Chronic diarrhea Medications: Monitored Anesthesia Care Procedure: Informed consent was obtained from the patient after discussion of the indications, limitations, alternatives, benefits, and risks of the procedure. Risks specifically discussed include but are not limited to medication reactions, missed lesions, bleeding, perforation, or the need for emergentsurgery. Throughout the procedure, the patient's bloodpressure, pulse, end-tidal CO2, and oxygen saturations were monitored continuously. The Olympus adult variable colonoscope [id number] #2was introduced through the anus and advanced to the ileocolonic anastomosis. The colonoscopy wasperformed without difficulty. The patient tolerated theprocedure well. The quality of the bowel preparation wasadequate after copious irrigation. Complications: No immediate complications. Estimated blood loss:None. Findings: The seth-terminal ileum appeared normal. This was biopsied with a cold forceps for histology. There was evidence of a prior side to end functional end-to-end ileo-colonic anastomosis in the ascending colon at ~60cm. The blind limb of the ileum showeeda mild stricture just before its blind end wasreached. The seth-terminal ileum was intubated and an aspirate was obtained from as deep within the seth terminalileum as possible (~10cm). This was patent and was characterized by healthy appearing mucosa and anintact staple line. The anastomosis was traversed. Fluid aspiration for bacterial counts to assess for SIBOwas performed. There was evidence of a prior functional end-to-end colo-colonic anastomosis in the recto-sigmoid colonat ~15cm. This was patent and was characterized byhealthy appearing mucosa. The exam was otherwise without abnormality. Biopsies for histology were taken with a coldforceps from the entire colon for evaluation of microscopic colitis. Impression: - The examined portion of the ileum was normal. Biopsied. - Patent functional end-to-end ileo-colonic anastomosis, characterized by an intact staple lineand healthy appearing mucosa. Fluid aspirationperformed. - Patent functional end-to-end colo-colonic anastomosis, characterized by healthy appearingmucosa. - The examination was otherwise normal. - Biopsies were taken with a cold forceps from the entire colon for evaluation of microscopiccolitis. Recommendation: - Patient has a contact number available for emergencies. The signs and symptoms of potential delayed complications were discussed with thepatient. Return to normal activities tomorrow. Writtendischarge instructions were provided to the patient. - Await pathology results. - Return to GI office as previously scheduled.Consider empiric treatment for SIBO. Robinson Bunn ROBINSON BUNN MD 03/28/2021 2:39:01 PM This report has been signed electronically. Number of Addenda: 0 Note Initiated On: 03/28/2021 1:46 PM Procedure Code(s): --- Professional --- 15759, Colonoscopy, flexible; with biopsy, single or multiple --- Technical --- 12847, Colonoscopy, flexible; with biopsy, single or multiple CPT copyright 2018 [employer]. All rights reserved. The codes documented in this report are preliminary and upon deputy county clerk reviewmay be revised to meet current compliance requirements. Procedure Date: 03/28/2021 1:46:[address] [place] [id number] Zach Sesay NP GI PROCEDURE ORDERABLES Final Result from Last 3 Months or Most Recently Relevant to Health Maintenance Insurance ACO ACO ACO ACO [employer] [place] [address] [address] [place] [address] ACO Care Teams Structural Designer Relationship Specialty Start Date End Date Celso Parr MD [address] [place] [address] PCP - General 03/28/21 Additional Source Comments The information contained in this document represents components of the legal health record. It is not the complete legal health record.[facility]
--- NOTE | 2025-06-23 15:13 | MHC.PC.OV ---
Vital Signs 06/23/25 15:20 Height 5 ft 6 in Weight 132 lb 3 oz BMI 21.3 BP 98/62 Blood Pressure Location Rt brachial Position Sitting Respiration 13 Pulse 75 Pulse Source Pulse Oximeter Temp 97.8 F Temp Source Temporal Artery Scan Pulse Oximetry (%) 96 Oxygen Delivery Method Room Air Intake Visit Reasons: BETO from [facility] Health Assessment Intake Note: Adrian presents in the office today as he is transferring his care and for a mental health assessment. Allergies bee pollen (bee stings) Allergy (Verified 06/23/25 15:17) Swelling pollen extracts Allergy (Verified 06/23/25 15:17) burning eye, sneezing ,runny nose Medication List - Last Reconciled 06/23/25 by Celso Parr MD cholestyramine (with sugar) 4 gram 3 packets QD epinephrine (EpiPen) 0.3 mg IM Q10M PRN Tobacco use date assessed: 06/23/25 Dental Screening Dental Screen Date: 06/23/25 Did you have a dental visit in the last 12 months?: Yes Did you have a dental problem in the last 6 months where you did not have access to dental care?: No Was dental information given to patient?: Patient has dentist HPI BETO from [facility] / Mental Health Assessment HPI Details Pt presents to f/u depression, chronic conditions. They have complaints of fatigue and they note he has been sleeping a lot. Pt's labs had been fine. 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 Abdominal wound dehiscence Diverticulitis Chronic fatigue Short gut syndrome Surgical History Status post exam under anesthesia with hemorrhoid banding S/P small bowel resection History of colon resection History of resection of terminal ileum History of bowel resection History of colostomy Social History (Updated 06/23/25 @ 15:20 by Chelsea Hazel MA) Household Members: None Both parents involved: No Caregiver staying overnight: No Housing: House Are you a primary lead caregiver to a significant other at home: No Do you presently have visiting nurse or other home services: No 75 years or older and lives alone: No Alcohol intake: current Patient Tobacco Use Status: Never used Tobacco e-Cigarette/Vaping Use: Never Used Second Hand Smoke Exposure: No Current occupational status: other (self-employed) Current occupation: self-employed Current occupational exposures/hazards: No Cognitive needs: No Hearing needs: No Vision needs: No Questionnaire Thrive Questionnaire Date Thrive assessed: 05/16/25 JONN-7 AMB Questionnaire JONN-7 Date JONN - 7 assessed: 05/16/25 Source: Developed by Drs. Alvin Cesar, Ana Cervantes, Rafa Pyle and colleagues, with an educational ed from [employer]. Physical exam (Primary Care) Vital Signs: Last Vital Signs Temp 97.8 F 06/23/25 15:20 Pulse 75 06/23/25 15:20 Resp 13 06/23/25 15:20 BP 98/62 06/23/25 15:20 Pulse Ox 96 06/23/25 15:20 Oxygen Delivery Method Room Air 06/23/25 15:20 BMI result Body Mass Index 21.3 Tobacco/Smoking Status: Tobacco use Status Tobacco use date assessed 06/23/25 06/23/25 15:23 Patient Tobacco Use Status Never used Tobacco 06/23/25 15:20 e-Cigarette/Vaping Use Never Used 06/23/25 15:20 Thrive Assessment: Date of Thrive Assessment Date Thrive assessed 05/16/25 06/23/25 15:14 Coding Level of Care Code Est Pt Level 3 (96975) Diagnoses Severe episode of recurrent major depressive disorder, without psychotic features F33.2 Active/Remission status: currently active Depression Type: major depressive disorder Major depression episode severity: severe Major depression recurrence: recurrent Psychotic features: without psychotic features Fatigue due to depression F32.A; R53.83 Fatigue type: due to depression Screening for prostate cancer Z12.5 Diarrhea, unspecified type R19.7 Diarrhea type: unspecified type Tooth abscess K04.7 Assessment & Plan Assessment & Plan (1) Depression: Code(s): F32.A - Depression, unspecified Category: Medical Qualifiers: Active/Remission status: currently active Depression Type: major depressive disorder Major depression episode severity: severe Major depression recurrence: recurrent Psychotic features: without psychotic features Qualified Code(s): F33.2 - Major depressive disorder, recurrent severe without psychotic features Plan: Ongoing depression as well as anxiety. Had tried mirtazapine when I last saw him was over a year ago. He says that trazodone had helped and helped with sleep as well. We can resume trazodone. Will also have him trial some bupropion in the morning. Checking inflammatory markers & urine screen. Will follow-up in a month (2) Fatigue: Code(s): R53.83 - Other fatigue Category: Medical Qualifiers: Fatigue type: due to depression Qualified Code(s): F32.A - Depression, unspecified; R53.83 - Other fatigue Plan: Patient has complaints of chronic fatigue Unclear cause. Had had a borderline low T level in the past but was never duplicated and current testosterone levels are within normal range H&H and iron levels are fine TSH is normal Patient declines referral to Psychiatry or neuropsychiatry to evaluate for fatigue secondary to depression or other psychiatric disorder though I suspect this may be the underlying or a contributing factor. Will follow-up in a month to see how these medications are helping. (3) Screening for prostate cancer: Code(s): Z12.5 - Encounter for screening for malignant neoplasm of prostate Category: Medical Plan: PSA within normal range Will continue annual screening (4) Diarrhea: Code(s): R19.7 - Diarrhea, unspecified Category: Medical Qualifiers: Diarrhea type: unspecified type Qualified Code(s): R19.7 - Diarrhea, unspecified Plan: Patient uses cholestyramine with good affect Continue current medication Will refer him back to GI if he is having new concerns (5) Tooth abscess: Code(s): K04.7 - Periapical abscess without sinus Category: Medical Plan: Right lower molar tooth abscess Will send script for penicillin VK He has an appointment with a dentist and I advised him to be sure to attend for definitive care. Orders: Orders Drug Screen Urine Today R41.840 - Attention and concentration deficit Comprehensive Met. Panel Today R41.840 - Attention and concentration deficit Complete Blood Count Auto Diff Today R41.840 - Attention and concentration deficit, Z00.00 - Encounter for general adult medical examination without abnormal findings Erythrocyte Sedimentation Rate Today R41.840 - Attention and concentration deficit CRP High Sensitivity Today R41.840 - Attention and concentration deficit Opiates GCMS Expanded, Ur Today R41.840 - Attention and concentration deficit Medications: New trazodone 50 mg PO BEDTIME PRN 30 tabs 3RF sleep 30 days penicillin V potassium 500 mg PO TID 30 tabs 0RF 10 days bupropion HCl 75 mg PO QAM 30 tabs 1RF 30 days ibuprofen 800 mg PO Q8H PRN 42 tabs 0RF pain 14 days cholestyramine (with sugar) 4 gram 3 packets QD 4 grams PO TID 90 ea 2RF 30 days
[2025-06-23 15:20] VITALS: BP 98/62; PULSE 75; RESP 13; TEMP 36.6; O2SAT 96; BMI 21.3
== END 2025-06-23 15:50 | disposition home or self-care (01) ==
LOC: HO.HMCFM 15:09
PROVIDERS: PCP Family Medicine; Visit Provider Family Medicine
DX: F33.2 Major depressive disorder, recurrent severe without psychotic features (principal); R53.83 Other fatigue; Z12.5 Encounter for screening for malignant neoplasm of prostate; R19.7 Diarrhea, unspecified; K04.7 Periapical abscess without sinus

== ENCOUNTER → 2025-06-23 15:09 | Outpatient (BNVA) | payer OTHER, SELFPAY | PROVIDERS: PCP Family Medicine; Visit Provider Family Medicine | DX: F33.2 Major depressive disorder, recurrent severe without psychotic features (principal); F41.9 Anxiety disorder, unspecified; R19.7 Diarrhea, unspecified; K04.7 Periapical abscess without sinus; R41.840 Attention and concentration deficit | CPT/HCPCS: 99212 ==